=== PATIENT | female | born 1975 | race Two or more races ===

== ENCOUNTER 2017-08-08 09:59 | Emergency (ER) | payer MEDICAID ==
[~2017-08-08] VITALS: Ht 152.4 cm; Wt 56.7 kg
[2017-08-08] MEDS ORDERED: ROBAXIN-750750 MG PO (10:29)
[2017-08-08] MEDS ORDERED: IBUPROFEN600 MG ORAL (10:29)
[2017-08-08] MEDS ORDERED: Methocarbamol 750mg tab ORAL ONE (10:30)
--- NOTE | 2017-08-08 10:31 | Emergency Room Report ---
History of Present Illness General Chief Complaint: Pelvic Pain Source: Patient Present Illness HPI 42-year-old female with no significant past medical history p/w left buttock/ hip pain for 5 days days. Patient states pain started gradually. Pain is localized to left hip/buttocks, sharp in nature, radiating down leg. Movement worsens pain. There are no alleviating factors. Patient took Tylenol which helped the pain This is the first occurrence of back pain. Denies trauma. Denies lower extremity weakness/numbness, no bowel/bladder retention or incontinence, saddle anesthesia. Denies fever, chills, abdominal pain, n/v, dysuria/hematuria. No history of IVDA Allergies: Coded Allergies: No Known Allergies (Unverified , 08/08/17) Patient History Past Medical History: see triage record Past Surgical History: none Pertinent Family History: none Reviewed Nursing Documentation: PMH: Agreed, PSxH: Agreed Nursing Documentation-PMH Past Medical History: No Stated History Review of Systems All Other Systems: negative except mentioned in HPI Physical Exam Vital Signs Date Time Temp Pulse Resp B/P (MAP) Pulse Ox O2 Delivery O2 Flow Rate FiO2 08/08/17 10:05 97.3 71 20 160/101 99 Room Air Sp02 EP Interpretation: reviewed, normal General Appearance: normal inspection, well appearing, no apparent distress, alert, GCS 15, non-toxic Head: normocephalic, atraumatic Eyes: bilateral eye normal inspection, bilateral eye PERRL, bilateral eye EOMI ENT: normal ENT inspection, normal pharynx, normal voice, moist mucus membranes Neck: normal inspection, full range of motion, supple Respiratory: normal inspection, lungs clear, normal breath sounds, no respiratory distress, no retraction, no wheezing, speaking full sentences, chest symmetrical Cardiovascular #1: normal inspection, regular rate, rhythm, no edema, normal capillary refill Cardiovascular #2: 2+ radial (R), 2+ radial (L) Gastrointestinal: normal inspection, non tender, soft, non-distended, no guarding Musculoskeletal: normal range of motion, other - L buttocks/and paraspinal lower lumbar tendenress, no midline tenderness, ambulatory, FROM Neurologic: normal inspection, alert, oriented x3, responsive, motor strength/ tone normal, sensory intact, normal gait, speech normal Psychiatric: normal inspection, judgement/insight normal, memory normal Skin: normal inspection, normal color, no rash, warm/dry, well hydrated, normal turgor Medical Decision Making Diagnostic Impression: Primary Impression: Left hip pain ER Course 42 yo F with L lower back/hip pain DDX: likely musculoskeletal back pain vs. muscular strain vs. sciatica Lumbar fracture is unlikely given patients age, no midline tenderness, no history of trauma, and that patient is ambulatory. Therefore, at this time no imaging is indicated Serious diagnoses such as cord compression, epidural abscess is unlikely in this patient given the clinical scenario and abscess of neurological symptoms or findings. Patient appears nontoxic. Plan: motrin, robaxin ER course: Patient has remained nontoxic appearing and ambulatory in the ED. Pain improved w/ medications Disposition: Patient will be discharged to home with prescription of motrin and robaxin. Patient cautioned of the effects of robaxin including possible impairment of physical or mental abilities. Patient was instructed to refrain from operating machinery or driving. Patient is also cautioned on the GI effects of motrin and to take sparingly. Patient verbalized understanding. Strict precautions discussed with patient on when to emergently return to the ED which includes severe/worsening back pain, leg weakness/numbness, urinary retention/incontinence, fever or chills, which may indicate severe illness. Patient is to follow up with their PMD within 5 days. Patient agrees with plan. Please note that this Emergency Department Report was dictated using [employer]cariot[employer] maker wood technology software, occasionally this can lead to erroneous entry secondary to interpretation by the dictation equipment. Last Vital Signs Date Time Temp Pulse Resp B/P (MAP) Pulse Ox O2 Delivery O2 Flow Rate FiO2 08/08/17 10:05 97.3 71 20 160/101 99 Room Air Disposition: HOME, SELF-CARE Scripts Methocarbamol* (ROBAXIN-750*) 750 Mg Tablet 750 MG PO QID, #28 TAB 0 Refills Prov: Retino,Clairose M.D. 08/08/17 Ibuprofen* (MOTRIN*) 600 Mg Tablet 600 MG ORAL Q8H Y for For Pain, #30 TAB 0 Refills Prov: Retino,Clairose M.D. 08/08/17 Patient Instructions: Hip Pain, Sciatica, [id number] Additional Instructions: Please follow up with your primary care doctor within 3 days. Please take your prescription medication as directed. Please come back to the emergency room if you are having severe/worsening pain, fever chills, inability to urinate, inability to walk Jose Judge M.D. Aug 08, 2017 10:31
[2017-08-08 10:36] LABS: APPEARANCE,URINE CLEAR; KETONES,URINE NEGATIVE (NEGATIVE); LEUKOCYTE ESTERASE ,URINE 3+ (NEGATIVE); NITRITE,URINE NEGATIVE (NEGATIVE); PH,URINE 7 (4.5-8.0); PROTEIN,URINE NEGATIVE (NEGATIVE); UROBILINOGEN,URINE NORMAL MG/DL (0.0-1.0)
[2017-08-08 10:45] LABS: BACTERIA,URINE MODERATE /HPF; SQUAMOUS EPITHELIAL CELL,UR FEW /LPF (NONE/OCC); WBC,URINE 15-20 /HPF (0 - 2)
[2017-08-08 10:48] VITALS: BP 134/91
[2017-08-08] MEDS ORDERED: NITROFURANTOIN100 M2 ORAL (10:52)
== END 2017-08-08 10:57 | disposition home or self-care (01) ==
LOC: EMR 10:52
DX: M25.552 Pain in left hip (principal)
CPT/HCPCS: 81001; 81025; 87086; 99284

== ENCOUNTER 2018-04-15 15:26 | Emergency (ER) | payer MEDICAID ==
[~2018-04-15] VITALS: Ht 149.9 cm; Wt 56.7 kg
[~2018-04-15 15:26] MED LIST: IBUPROFEN600 MG ORAL; NITROFURANTOIN100 M2 ORAL; ROBAXIN-750750 MG PO
[2018-04-15] MEDS ORDERED: NKM (15:41)
[2018-04-15 15:52] VITALS: BP 144/88
--- NOTE | 2018-04-15 16:06 | Emergency Room Report ---
History of Present Illness General Chief Complaint: Skin Rash/Abscess Source: Patient Present Illness HPI 42-year-old female presents emergency department complaining of 8 out of 10 in severity pain, tenderness, erythema and swelling to the right lower buttock which has been progressive 5 days. Patient states that he does began as a small thought that she thought was either a pimple or insect bite. Patient denies itching she denies fevers, chills, recent travel or persons with similar symptoms. She states she took Tylenol yesterday which helped relieve some pain however the area is still very tender because she cannot sit. denies bleeding. Allergies: Coded Allergies: No Known Allergies (Unverified , 08/08/17) Patient History Past Medical History: see triage record Past Surgical History: none Pertinent Family History: none Last Menstrual Period: 04/11/18 Now: No Reviewed Nursing Documentation: PMH: Agreed; PSxH: Agreed Nursing Documentation-PMH Past Medical History: No Stated History Review of Systems All Other Systems: negative except mentioned in HPI Physical Exam Vital Signs Date Time Temp Pulse Resp B/P (MAP) Pulse Ox O2 Delivery O2 Flow Rate FiO2 04/15/18 15:37 98.7 91 16 144/88 96 Room Air 98.8 Sp02 EP Interpretation: reviewed, normal General Appearance: no apparent distress, alert, GCS 15, non-toxic Head: normocephalic, atraumatic ENT: hearing grossly normal, normal voice Neck: full range of motion Respiratory: chest non-tender, lungs clear, normal breath sounds, speaking full sentences Cardiovascular #1: regular rate, rhythm Rectal: deferred Musculoskeletal: back normal, gait/station normal, normal range of motion, tender - TTP to 1cm area on the right lower buttock, some erythema, no palpable fluctuance, mild induration noted. no blister or vessicle , no pustule. Neurologic: alert, oriented x3, responsive, motor strength/tone normal, sensory intact, speech normal, grossly normal Psychiatric: judgement/insight normal Skin: no rash, warm/dry, well hydrated, other - TTP to 1cm area on the right lower buttock, some erythema, no palpable fluctuance, mild induration noted. no blister or vessicle , no pustule. Medical Decision Making PA Attestation Dr. snell is my supervising Physician whom patient management has been discussed with. Diagnostic Impression: Primary Impression: Abscess ER Course 42-year-old female presents emergency department complaining of 8 out of 10 in severity pain, tenderness, erythema and swelling to the right lower buttock which has been progressive 5 days. Patient states that he does began as a small thought that she thought was either a pimple or insect bite. Patient denies itching she denies fevers, chills, recent travel or persons with similar symptoms. She states she took Tylenol yesterday which helped relieve some pain however the area is still very tender because she cannot sit. denies bleeding. Ddx considered but are not limited to cellulitis, abscess, cystic acne, necrotizing fasciitis, insect bite. Vital signs: are WNL, pt. is afebrile H&PE are most consistent with Right lower buttock palpable 1 cm diameter induration, no fluctuance, some erythema. ORDERS: none required at this time, the diagnosis is clinical ED INTERVENTIONS: -Antibiotics PO - Pt. chooses to defer I & D. Discussed with patient that we will try oral course of antibiotics and sitz baths/hot compresses at home discussed that if symptoms are not improving she needs to return for incision and drainage. Also discussed concerning symptoms that would indicate prompt return to the emergency department. DISCHARGE: At this time pt. is stable for d/c to home. Will provide printed patient care instructions, and any necessary prescriptions. Care plan and follow up instructions have been discussed with the patient prior to discharge. Last Vital Signs Date Time Temp Pulse Resp B/P (MAP) Pulse Ox O2 Delivery O2 Flow Rate FiO2 04/15/18 15:52 98.8 80 16 144/88 96 Room Air 98.8 Disposition: HOME, SELF-CARE Condition: Stable Scripts Hydrocodone Bit/Acetaminophen 5-325* (NORCO 5-325*) 1 Each Tablet 1 TAB ORAL Q6H PRN for For Pain, #10 TAB 0 Refills Prov: Amarilis Mullen 04/15/18 Mupirocin* (MUPIROCIN*) 22 Gm Oint...g. 1 APPLIC TOPIC THREE TIMES A DAY, #22 GM Prov: Amarilis Muleln 04/15/18 Trimethoprim/Sulfamethoxazole 160/800* (BACTRIM DS TABLET*) 1 Each Tablet 1 TAB ORAL TWICE A DAY for 7 Days, #14 TAB Prov: Amarilis Mullen 04/15/18 Cephalexin* (KEFLEX*) 500 Mg Capsule 500 MG ORAL EVERY 12 HOURS for 7 Days, #14 CAP 0 Refills Prov: Amarilis Mullen 04/15/18 Referrals: NOT CHOSEN IPA/MD,REFERRING (PCP) Departure Forms: Return to Work Return to Work Date: Apr 19, 2018 Work Restrictions: None Return to Full Activity: Apr 19, 2018 Patient Instructions: Abscess Additional Instructions: Take medications as directed. Follow up with a Primary Care Provider in 3-5 days, even if your symptoms have resolved. --Please review list of primary care clinics, if you do not already have a primary care provider Return sooner to ED if new symptoms occur, or current symptoms become worse. Do not drink alcohol, drive, or operate heavy machinery while taking Ignacio as this may cause drowsiness. - Please note that this Emergency Department Report was dictated using [employer] cover estimator technology software, occasionally this can lead to erroneous entry secondary to interpretation by the dictation equipment. Amarilis Mullen Apr 15, 2018 16:06
[2018-04-15] MEDS ORDERED: MUPIROCIN22 GM TOPIC (16:08)
[2018-04-15] MEDS ORDERED: BACTRIM DS TAB1 EAC1 ORAL (16:08)
[2018-04-15] MEDS ORDERED: NORCO 5-325 TA1 EACH ORAL (16:08)
[2018-04-15] MEDS ORDERED: CEPHALEXIN500 MG ORAL (16:08)
[2018-04-15] MEDS ORDERED: Norco 5mg/325mg tab ORAL ONE (16:15)
[2018-04-15] MEDS ORDERED: Cephalexin 500mg cap ORAL ONE (16:15)
[2018-04-15] MEDS ORDERED: Bactrim-DS 1 tab ORAL ONE (16:15)
[2018-04-15 16:16] VITALS: BP 144/88
== END 2018-04-15 16:18 | disposition home or self-care (01) ==
LOC: EMR 15:51
DX: L02.31 Cutaneous abscess of buttock (principal)
CPT/HCPCS: 99284

== ENCOUNTER 2018-07-06 14:58 | Emergency (ER) | payer MEDICAID ==
[~2018-07-06] VITALS: Ht 160 cm; Wt 56.7 kg
[~2018-07-06 14:58] MED LIST changes: +BACTRIM DS TAB1 EAC1 ORAL; +CEPHALEXIN500 MG ORAL; +MUPIROCIN22 GM TOPIC; +NKM; +NORCO 5-325 TA1 EACH ORAL
[2018-07-06] MEDS ORDERED: NKM (15:05)
[2018-07-06 15:07] VITALS: BP 135/90
--- NOTE | 2018-07-06 15:10 | Emergency Room Report ---
History of Present Illness General Chief Complaint: Female Urogenital Problems Source: Patient Present Illness HPI 42-year-old female patient presents ER complaining of "UTI symptoms" for the past 4 days. reports pain with urination, states is been taking Pyridium without relief of symptoms. Denies hematuria or vaginal discharge. Reports right-sided flank pain during this time. denies . Reports had her "tubes tied". denies fever, chest pain, shortness of breath, vomiting. Reports LMP was one month ago. Allergies: Coded Allergies: No Known Allergies (Unverified , 08/08/17) Patient History Past Medical History: see triage record Now: No Reviewed Nursing Documentation: PMH: Agreed; PSxH: Agreed Nursing Documentation-PMH Past Medical History: No Stated History Review of Systems All Other Systems: negative except mentioned in HPI Physical Exam Vital Signs Date Time Temp Pulse Resp B/P (MAP) Pulse Ox O2 Delivery O2 Flow Rate FiO2 07/06/18 15:00 98.0 83 17 135/90 97 Room Air 98.1 Sp02 EP Interpretation: reviewed, normal General Appearance: well appearing, no apparent distress, alert, GCS 15, non- toxic Head: normocephalic, atraumatic Eyes: bilateral eye normal inspection, bilateral eye PERRL ENT: hearing grossly normal, normal pharynx, no angioedema, normal voice, uvula midline, moist mucus membranes Neck: full range of motion Respiratory: lungs clear, normal breath sounds, no rhonchi, no respiratory distress, no accessory muscle use, no wheezing, speaking full sentences Cardiovascular #1: regular rate, rhythm, no edema Gastrointestinal: non tender, soft, no mass, non-distended, no guarding, no rebound, other - negative Rovsing, negative obturator, negative Blount Genitourinary: no CVA tenderness Musculoskeletal: back normal, digits/nails normal, gait/station normal, normal range of motion, non-tender Neurologic: alert, oriented x3, responsive, motor strength/tone normal, sensory intact Skin: no rash Medical Decision Making PA Attestation Dr. Wynn is my supervising Physician whom patient management has been discussed with. Diagnostic Impression: Primary Impression: Urinary tract infection ER Course Pt presents to ED c/o pain with urination. DDX considered but are not limited to cystitis, pyelonephritis, STI, vaginitis, . No abdominal tenderness to palpation, negative resaw operator, negative Blount, negative Rovsing, low suspicion for cholecystitis or appendicitis, does not require imaging or labs at this time. VITAL SIGNS are WNL, patient is afebrile. Ordered UA. ER COURSE UA results show moderate bacteria and WBCs, patient symptomatic, indicate UTI, will treat with abx. Due to patient complaining of flank pain, will provide patient with Rx for Ciprofloxacin to cover for likely pyelonephritis. RBC's in urine may be related to possible onset of menstrual period incoming days due to previous menstrual period being one month ago per patient report. Discuss results with patient. If concern for STI, followup with STI clinic for testing and treatment. Denies STI concern. patient resting comfortably in no acute distress in bed, nontoxic appearing, no CVA tenderness, denies hematuria, low suspicion for kidney stones, does not require imaging at this time. ER precautions given to patient. Return to ER for new or worsening of symptoms. May continue to take Pyridium for pain symptoms. May also consider taking Tylenol for pain. Patient is resting comfortably in chair, nontoxic appearing, in no acute distress. DISCHARGE -Rx provided for Cipro. Patient is stable for discharge. Patient resting comfortably, in no acute distress, nontoxic appearing, talking without difficulty. Will provide with patient care instructions and any necessary prescriptions. Patient understands and agrees to treatment plan. Patient encouraged to drink plenty of fluids. Patient to take medication as instructed. Care plan and follow-up instructions provided. Patient questions asked and answered. Reports understanding and agreement to treatment plan. Patient instructed to follow-up with primary care provider in 3 - 5 days. ER precautions given. Patient instructed to return to ER immediately for any new or worsening of symptoms. Including but not limited to fever, abdominal pain , intractable vomiting. - Please note that this Emergency Department Report was dictated using [employer] judge technology software, occasionally this can lead to erroneous entry secondary to interpretation by the dictation equipment. Labs Test 07/06/18 15:05 Urine Color Yellow Urine Appearance Slightly cloudy Urine pH 6 (4.5-8.0) Urine Specific [place] 1.015 (1.005-1.035) Urine Protein 2+ (NEGATIVE) Urine Glucose (UA) Negative (NEGATIVE) Urine Ketones Negative (NEGATIVE) Urine Blood 4+ (NEGATIVE) Urine Nitrite Negative (NEGATIVE) Urine Bilirubin Negative (NEGATIVE) Urine Urobilinogen 1 MG/DL (0.0-1.0) Urine Leukocyte Esterase 3+ (NEGATIVE) Urine RBC 5-10 /HPF (0 - 2) Urine WBC 20-30 /HPF (0 - 2) Urine Squamous Epithelial Cells Few /LPF (NONE/OCC) Urine Bacteria Moderate /HPF (NONE) Last Vital Signs Date Time Temp Pulse Resp B/P (MAP) Pulse Ox O2 Delivery O2 Flow Rate FiO2 07/06/18 15:07 98.1 17 135/90 97 Room Air 98.1 07/06/18 15:00 83 Disposition: HOME, SELF-CARE Condition: Stable Scripts Ciprofloxacin Hcl* (CIPROFLOXACIN HCL*) 500 Mg Tablet 500 MG ORAL EVERY 12 HOURS for 7 Days, #14 TAB 0 Refills Prov: Cornel Fairbanks 07/06/18 Patient Instructions: Urinary Tract Infection Additional Instructions: Followup with primary care provider and followup with and./or OBGYN. Drink plenty of fluids. Take medications as directed. Avoid playing sports while taking medication. Pyridium has SE of turning urine orange. Patient questions asked and answered. ER precautions given, patient instructed to return to ER immediately for any new or worsening of symptoms. Cornel Fairbanks Jul 06, 2018 15:10
[2018-07-06 15:50] LABS: BILIRUBIN, URINE NEGATIVE (NEGATIVE); GLUCOSE, URINE (UA) NEGATIVE (NEGATIVE); KETONES,URINE NEGATIVE (NEGATIVE); LEUKOCYTE ESTERASE ,URINE 3+ (NEGATIVE); NITRITE,URINE NEGATIVE (NEGATIVE); PH,URINE 6 (4.5-8.0); PROTEIN,URINE 2+ (NEGATIVE); UROBILINOGEN,URINE 1 MG/DL (0.0-1.0)
[2018-07-06 15:53] LABS: APPEARANCE,URINE SLIGHTLY CLOUDY; COLOR,URINE YELLOW
[2018-07-06] MEDS ORDERED: CEPHALEXIN500 MG ORAL (16:20)
[2018-07-06] MEDS ORDERED: CIPROFLOXACIN500 M2 ORAL (16:24)
[2018-07-06 16:28] VITALS: BP 132/88
== END 2018-07-06 16:28 | disposition home or self-care (01) ==
LOC: EMR 15:29
DX: N39.0 Urinary tract infection, site not specified (principal)
CPT/HCPCS: 81003; 87086; 87181; 99283